=== PATIENT | female | born 1955 | race Caucasian/White ===

== ENCOUNTER 2016-10-25 08:03 | Day surgery (SDC) | payer MEDICARE, OTHER ==
[~2016-10-25] VITALS: Ht 160 cm; Wt 92.7 kg
[~2016-10-25 08:03] MED LIST: AMLO-512 PO; LEVO50 PO; LIDOCAINE HCL/PF 2% 5 ML SYRINGE IVP ONE; PROPOFOL 1% 20 ML VIAL IVP ONE
[2016-10-25] MEDS ORDERED: SODIUM CHLORIDE 0.9% 1,000 ML IV ONE ×2 (08:24→08:30)
[2016-10-25] MEDS ORDERED: OXYGEN THERAPY IH SCH (10:13)
== END 2016-10-25 12:25 | disposition home or self-care (01) ==
LOC: SURGERY 08:03
PROVIDERS: ATTEND Specialist
DX: K64.1 Second degree hemorrhoids (principal); K64.4 Residual hemorrhoidal skin tags; I10 Essential (primary) hypertension; E66.9 Obesity, unspecified; Z90.710 Acquired absence of both cervix and uterus; Z96.651 Presence of right artificial knee joint; Z98.890 Other specified postprocedural states
CPT/HCPCS: 45350; J2704; J3490; J7030

== ENCOUNTER 2017-08-22 07:38 | Day surgery (SDC) | payer MEDICARE, OTHER ==
[~2017-08-22] VITALS: Ht 162.6 cm; Wt 95.0 kg
[~2017-08-22 07:38] MED LIST changes: -LIDOCAINE HCL/PF 2% 5 ML SYRINGE IVP ONE; -PROPOFOL 1% 20 ML VIAL IVP ONE; +RANI150T7 PO
[2017-08-22] MEDS ORDERED: SODIUM CHLORIDE 0.9% 1,000 ML IV ONE ×2 (07:44→08:00)
[2017-08-22] MEDS ORDERED: OXYGEN THERAPY IH SCH (10:15)
[2017-08-22] MEDS ORDERED: PROPOFOL 1% 20 ML VIAL IVP ONE (12:00)
== END 2017-08-22 11:40 | disposition home or self-care (01) ==
LOC: SURGERY 07:38
PROVIDERS: ATTEND Specialist
DX: K64.0 First degree hemorrhoids (principal); K21.9 Gastro-esophageal reflux disease without esophagitis; L29.0 Pruritus ani; I10 Essential (primary) hypertension; Z79.899 Other long term (current) drug therapy; Z90.49 Acquired absence of other specified parts of digestive tract; Z90.710 Acquired absence of both cervix and uterus; Z98.890 Other specified postprocedural states; Z96.659 Presence of unspecified artificial knee joint; Z91.011 Allergy to milk products
CPT/HCPCS: 45350; J2704; J7030

== ENCOUNTER 2019-06-24 21:19 | Emergency (ER) | payer MEDICARE, OTHER ==
[~2019-06-24] VITALS: Ht 162.6 cm; Wt 93.6 kg
[~2019-06-24 21:19] MED LIST changes: -AMLO-512 PO; +AMLO10TA7 PO
[2019-06-24] MEDS ORDERED: TROS20TA3 PO (22:16)
[2019-06-24] MEDS ORDERED: SODIUM CHLORIDE 0.9% 1,000 ML IV ONE (22:30)
[2019-06-24] MEDS ORDERED: ONDANSETRON HCL 4 MG/2 ML VIAL IVP ONE (22:30)
[2019-06-24] MEDS ORDERED: KETOROLAC TROMETHAMINE 30 MG/ML VIAL IVP ONE (22:30)
[2019-06-24 22:53] LABS: BASOPHILS % (AUTO) 0.3 % (0.0-2.0); EOSINOPHILS % (AUTO) 0.5 % (1.0-6.0); HEMATOCRIT 41.9 % (36-46); LYMPHOCYTES # (AUTO) 1.6 K/uL (1.0-4.8); MEAN CORPUSCULAR HEMOGLOBIN 28.8 pg (26.0-34.0); MEAN CORPUSCULAR HGB CONC 33.5 G/dL (31.0-37.0); MEAN CORPUSCULAR VOLUME 86 fL (80-100); MONOCYTES # (AUTO) 0.6 K/uL (0.1-1.0); MONOCYTES % (AUTO) 3.9 % (2.0-9.0); NEUTROPHILS # (AUTO) 12.4 K/uL (1.8-7.7); NEUTROPHILS % (AUTO) 84.3 % (40.0-70.0); PLATELET COUNT (AUTO) 258 K/uL (150-450); RED BLOOD CELL COUNT(AUTO) 4.86 MIL/uL (4.00-5.20); RED CELL DISTRIBUTION WIDTH 14.5 % (11.5-14.5)
[2019-06-24 23:02] LABS: ANION GAP 10 mmol/L (8-16); CALCIUM, TOTAL 9.2 mg/dL (8.8-10.5); CARBON DIOXIDE 27 mmol/L (22-29); CHLORIDE 103 mmol/L (98-107); CREATININE 0.82 mg/dL (0.60-1.30); GLOMERULAR FILTR. RATE CALC > 60 mL/min (>60); GLUCOSE,RANDOM 121 mg/dL (70-110); POTASSIUM 3.9 mmol/L (3.5-5.1); SODIUM SERUM 140 mmol/L (136-145); UREA NITROGEN, BLOOD 12 mg/dL (7-18)
[2019-06-24 23:08] LABS: ALANINE AMINOTRANSFERASE 19 U/L (12-78); ALKALINE PHOSPHATASE 124 U/L (46-116); ASPARTATE AMINOTRANSFERASE 24 U/L (15-37); BILIRUBIN,TOTAL 0.6 mg/dL (0.1-1.0); LIPASE 117 U/L (73-393)
[2019-06-25 00:27] LABS: APPEARANCE,URINE CLEAR (CLEAR); BILIRUBIN,URINE NEGATIVE (NEGATIVE); GLUCOSE, URINE (UA) NEGATIVE (NEGATIVE); KETONES,URINE TRACE mg/dL (NEGATIVE); LEUKOCYTE ESTERASE ,URINE TRACE (NEGATIVE); NITRATE,URINE NEGATIVE (NEGATIVE); OCCULT BLOOD,URINE NEGATIVE (NEGATIVE); PH,URINE 6.5 (5.0-8.0); PROTEIN,URINE NEGATIVE (NEGATIVE); UROBILINOGEN,URINE 0.2 mg/dL (<=1.0)
[2019-06-25 00:34] LABS: BACTERIA,URINE None Seen /HPF (None Seen); RBC,URINE 0-2 /HPF (0-2); SQUAMOUS EPITHELIAL CELL,UR Rare /LPF (None Seen)
[2019-06-25 00:59] VITALS: BP 116/81
== END 2019-06-25 01:07 | disposition home or self-care (01) ==
LOC: EMS 21:20
DX: R11.2 Nausea with vomiting, unspecified (principal); T50.905A Adverse effect of unspecified drugs, medicaments and biological substances, initial encounter; I10 Essential (primary) hypertension; E03.9 Hypothyroidism, unspecified; Z91.011 Allergy to milk products
CPT/HCPCS: 36415; 80053; 81001; 83690; 85025; 96361; 96374; 96375; 99283; J1885; J2405; J7030